=== PATIENT | female | born 1945 | race Caucasian/White ===

== ENCOUNTER 2020-01-28 10:00 | Outpatient (RCR) | payer MEDICARE, OTHER, SELFPAY | END 2020-03-03 15:46 | disposition other institution (70) | LOC: HO.PT 10:00 | PROVIDERS: Visit Provider Student in an Organized Health Care Education/Training Program | DX: M46.1 Sacroiliitis, not elsewhere classified (principal) | CPT/HCPCS: 97110; 97162 ==